=== PATIENT | female | born 1990 | race Caucasian/White ===

== ENCOUNTER 2019-08-10 02:31 | Emergency (ER) | payer MEDICAID ==
[~2019-08-10] VITALS: Ht 157.5 cm; Wt 77.1 kg
[2019-08-10 03:50] VITALS: BP 140/91
--- NOTE | 2019-08-10 05:30 | NUR ---
PT AMBULATED TO BED 06.
--- NOTE | 2019-08-10 05:50 | NUR ---
C/O UTI SX X 2 WEEKS. RATES PAIN 6/10 AND DESCRIBES IT BURNING AND IRRITATING. PT STATES SHE HAS DYSURIA, BURNING SENSATION WHEN SHE PEES. A & O X4. STEADY GAIT. DENIES ANY FLANK PAIN OR N,V,D, OR FEVER. NO PMH NKA.
[2019-08-10 06:43] LABS: APPEARANCE,URINE CLOUDY (CLEAR); BILIRUBIN,URINE NEGATIVE (NEGATIVE); BLOOD, URINE 2+ (NEGATIVE); COLOR,URINE YELLOW (YELLOW); LEUKOCYTE ESTERASE ,URINE 3+ (NEGATIVE); NITRITE, URINE POSITIVE (NEGATIVE); UGLUCOSE NEGATIVE (NEGATIVE)
[2019-08-10 06:51] VITALS: BP 140/91
--- NOTE | 2019-08-10 06:51 | NUR ---
Patient discharged with v/s stable. Written and verbal after care instructions given and explained BY DR. FELIX. Patient alert, oriented and verbalized understanding of instructions. Ambulatory with steady gait. All questions addressed prior to discharge. ID band removed. Patient advised to follow up with PMD. Rx of MACROBID,PYRIDIUM given. Patient educated on indication of medication including possible reaction and side effects. Opportunity to ask questions provided and answered.
[2019-08-10 06:59] LABS: WBC,URINE 60-80 /HPF (0-5)
[2019-08-10 07:02] LABS: URINE AMORPHOUS URATE 1+ /HPF (None Seen)
== END 2019-08-10 06:51 | disposition home or self-care (01) ==
LOC: MED 02:31
DX: N39.0 Urinary tract infection, site not specified (principal)
CPT/HCPCS: 81001; 81025; 87086; 87186; 99283